=== PATIENT | female | born 1950 | race Caucasian/White ===

== ENCOUNTER → 2024-02-04 12:23 | Outpatient (CLI) | payer MEDICARE, OTHER, SELFPAY ==
--- NOTE | 2024-02-04 | DI.RAD.S_ITS ---
Bone Density Report Name: QIAN WEI Age: 73 Sex: Female Ethnicity: White Date of : 1950 Indication: postmenopausal; screening for osteoporosis; Referring Provider: KEE BUTLER Study: Bone densitometry was performed. Exam Date: February 04, 2024 Accession number: [id number] Bone Density: Region BMD T-score Z-score Classification Femoral Neck (Left) 0.773 -0.7 1.3 Normal Total Hip (Left) 0.944 0.0 1.7 Normal Femoral Neck (Right) 0.775 -0.7 1.3 Normal Total Hip (Right) 0.887 -0.4 1.3 Normal Total Hip Mean 0.916 -0.2 1.5 Normal Total Forearm (Left) 0.607 0.5 2.9 Normal 1/3 Forearm (Left) 0.682 -0.2 2.2 Normal UD Forearm (Left) 0.448 0.1 1.8 Normal World Health Organization criteria for BMD impression classify patients as: Normal (T-score at or above -1.0), Osteopenia (T-score between -1.0 and -2.5), or Osteoporosis (T-score at or below -2.5). Impression: The patient has normal bone mass. Discussion: BONE DENSITY IS ABOVE THE MINIMUM DESIRABLE LEVEL AT ALL SKELETAL SITES TESTED. This patient's bone mineral density is above the minimum desirable level (T-score -1.0 or better) at all sites measured. The patient should follow a healthful lifestyle (good nutrition with adequate calcium and vitamin D, and appropriate weight-bearing exercise). Follow-Up: Consider repeating this study in 5 years or sooner if there is some new clinical indication. Reported by: [facility] DOLLY MORA M.D. on 02/04/2024 1:14:00 PM.
--- NOTE | 2024-02-04 | DI.MG.S_ITS ---
BILATERAL DIGITAL SCREENING MAMMOGRAM 3D/2D WITH CAD: 02/04/2024 CLINICAL: Routine screening. Family history of breast cancer. Comparison is made to exams dated: 04/17/2021 mammogram, 05/06/2019 mammogram, 04/07/2018 mammogram, and 04/06/2019 mammogram - outside location. There are scattered areas of fibroglandular density in both breasts (category b / 25%-50% glandular tissue). Current study was also evaluated with a Computer Aided Detection (CAD) system. No significant masses, calcifications, or other findings are seen in either breast. There has been no significant interval change. IMPRESSION: NEGATIVE There is no mammographic evidence of malignancy. A 1 year screening mammogram is recommended. Based on the Tyrer Cuzick model (a risk assessment model) the patient's lifetime risk is 5.4% and her 10 year risk is 4.5%. According to the ACR, ACS, and NCCN guidelines, an annual breast MRI exam along with mammogram is recommended if the patient's lifetime risk is 20% or greater. This exam was interpreted at Station ID: [id number]. NOTE: For mammograms, a report in lay terms will be sent to the patient. Approximately 15% of breast malignancies will not be visualized mammographically. In the management of a palpable breast mass, a negative mammogram must not discourage biopsy of a clinically suspicious lesion. Electronically Signed By: Mary Lou Franks M.D., PH.D annamaria/ajay:02/04/2024 16:06:03 letter sent: Normal Exam ACR BI-RADS Category 1: Negative [id number]
== END ==
PROVIDERS: PCP Family Medicine; Referring Provider Family Medicine; Visit Provider Family Medicine
DX: Z80.3 Family history of malignant neoplasm of breast (principal); Z12.31 Encounter for screening mammogram for malignant neoplasm of breast; R92.323 Mammographic fibroglandular density, bilateral breasts; M85.89 Other specified disorders of bone density and structure, multiple sites
CPT/HCPCS: 77063; 77067; 77080; 77081

== ENCOUNTER → 2024-02-10 16:24 | Outpatient (CLI) | payer MEDICARE, OTHER, SELFPAY | PROVIDERS: PCP Family Medicine; Referring Provider Physician Assistant; Visit Provider Physician Assistant | DX: Z01.818 Encounter for other preprocedural examination (principal) | CPT/HCPCS: 93005 ==

== ENCOUNTER → 2024-10-28 18:40 | Outpatient (CLI) | payer MEDICARE, OTHER, SELFPAY ==
--- NOTE | 2024-10-28 | DI.MRI.S_ITS ---
PROCEDURE: MR CERVICAL SPINE WO CON INDICATIONS: previous c4-c6 fusion rt c7 t1 foraninotmy TECHNIQUE: Noncontrast sagittal T1 spin echo and T2 fast spin echo, sagittal STIR, foraminal oblique sagittal T2 fast spin echo, and axial gradient echo or T2 fast spin echo through the cervical spine. COMPARISON: None. FINDINGS: Image quality: Excellent. Alignment and Curvature: Remote ACDF at C4 through C6. Trace retrolisthesis of C6 on C7. Trace anterolisthesis of C5 on C6. Bone Marrow: Marrow demonstrates normal overall signal. Spinal Cord: There is focal signal abnormality in the cord seen at the level of C6 to the left of midline consistent with a focal area of myelomalacia. Reference T2 axial image 27 of series 3. No cerebellar tonsillar herniation. Paraspinous Soft Tissues: No paravertebral masses. Prevertebral soft tissues are normal in thickness. C2-C3: Disc bulge. No canal stenosis. Left facet hypertrophy. Moderate left foraminal narrowing with flattening deformity on the exiting left C3 nerve root. C3-C4: Chronic disc height loss. Posterior diffuse disc post osteophyte flattening the cord. Moderate to severe canal stenosis. AP diameter of the central canal is 7.8 mm. Reference axial T2 image 18 of series 3. Prominent bilateral uncovertebral joint hypertrophy. Facet hypertrophy. Severe bilateral foraminal narrowing with bilateral foraminal C4 nerve root impingement. C4-C5: Remote ACDF. No canal stenosis. Bilateral uncovertebral joint hypertrophy and facet hypertrophy. Moderate bilateral foraminal narrowing. C5-C6: Remote ACDF. Ventral cord flattening. Ycjk-zr-cltelmso canal stenosis. AP diameter of the central canal is 9.1 mm. Reference axial image 25 of series 3. Bilateral uncovertebral joint hypertrophy. Bilateral facet hypertrophy. Moderate to severe bilateral foraminal narrowing with a degree of bilateral foraminal C6 nerve root impingement. C6-C7: Severe chronic disc height loss. Diffuse posterior disc post osteophyte. Moderate to severe canal stenosis. AP diameter of the central canal is 7.8 mm. Reference axial image 29 of series 3. Bilateral uncovertebral joint hypertrophy. Moderate to severe bilateral foraminal narrowing with a degree of bilateral foraminal C7 nerve root impingement. C7-T1: Chronic disc height loss. Disc bulge. No central canal stenosis. Prominent right uncovertebral joint hypertrophy plus right facet hypertrophy. Despite previous surgery, there appears to be continued moderate to severe right foraminal narrowing and a degree of right foraminal C8 nerve root impingement. There is moderate left foraminal narrowing. IMPRESSION: 1. Diffuse cervical spondylitic change. 2. Remote ACDF at C4 through C6 and given history of right foraminotomy at C7-T1. 3. Canal stenosis is moderate to severe at C3-C4, [id number]-[id number] at C5-C6, and moderate to severe at C6-C7. 3. Multilevel foraminal narrowing as described above. Findings include severe bilateral foraminal narrowing at C3-C4, moderate to severe bilateral foraminal narrowing at C5-C6, moderate to severe bilateral foraminal narrowing at C6-C7, and moderate to severe right foraminal narrowing at C7-T1. Comment: CT of the cervical spine may be helpful to more clearly defined the surgery, and to confirm the degree of right foraminal narrowing at C7-T1. Dictated by: Adan Rm M.D. on 10/29/2024 at 11:52 Approved by: Adan Rm M.D. on 10/29/2024 at 12:03
== END ==
PROVIDERS: PCP Family Medicine; Referring Provider Family Medicine; Visit Provider Orthopaedic Surgery Orthopaedic Surgery of the Spine
DX: Z09 Encounter for follow-up examination after completed treatment for conditions other than malignant neoplasm; Z98.1 Arthrodesis status; M47.812 Spondylosis without myelopathy or radiculopathy, cervical region; M48.02 Spinal stenosis, cervical region
CPT/HCPCS: 72141

== ENCOUNTER 2025-01-19 15:15 | Outpatient (RCR) | payer MEDICARE, OTHER, SELFPAY ==
--- NOTE | 2025-01-07 09:45 | PT.OIE ---
Current Diagnoses Stress incontinence (female) (male) (01/07/25) Pelvic muscle wasting (01/07/25) Nocturia (01/07/25) Urgency of urination (01/07/25) Visit Care Team Role Provider Type Vero Landaverde MD Attending Provider Physician Family Provider Primary Care Provider Referring Provider Specialty: Family Practice Address: [address] [place] [address], [id number] Email: [email or web address] Physical Therapy Initial Evaluation PT-OP-A Visit Information Start: 01/06/25 12:04 Freq: Status: Active Protocol: Document 01/07/25 09:51 [facility] (Rec: 01/07/25 10:35 [facility] [id number]) Out-Patient Physical Therapy Visit Information Visit Information Visit Type Initial Evaluation Visit Start Time 09:50 Visit Stop Time 10:35 Visit Number 1 PT-OP-B Current Condition Start: 01/06/25 12:04 Freq: Status: Active Protocol: Document 01/07/25 09:45 [facility] (Rec: 01/07/25 10:35 [facility] [id number]) Current Condition History of Current Condition Current Complaints leaking with coughing and increased frequency of voiding History of Current Condition pt notes that her symptoms started a year ago and she saw Dr. Landaverde in July in 2023 and was referred to PT and given estrogen suppositories. she did start some kegels and she feels the estrodial she is using reguraly. She feels she is doing better. She feels only 1xm in the past three weeks has she noticed leakage. She takes miralax for bowel movements and has had to take this for years. She stops drinking liquids by 7 and goes to bed at 10. She sleeps until approx 6:30 Merline notes she feels very nervous about her bladder and feels she needs to be able to know where there is a bathroom She takes a bladder stimulant hydothoraclodizide 25 mg tablet for blood pressure and it is a bladder stimulant for years. So first thing in the am she has to go more frequently Prior Treatments and Tests she started taking estrodial vaginal estrogen suppositories She has a history of 2 c section delivies hysterectomy She had a lumbar fusion surgery March of 2023 and then cervical disc repair February 2024 PT-OP-C Subjective Start: 01/06/25 12:04 Freq: Status: Active Protocol: Document 01/07/25 09:45 [facility] (Rec: 01/12/25 11:26 [facility] [id number]) Patient Questionnaires Pelvic Pain and Urgency/Frequency Patient Symptom Scale Pelvic Pain Score 5 PT-OP-I Pelvic Floor Start: 01/06/25 12:04 Freq: Status: Active Protocol: Document 01/07/25 09:45 [facility] (Rec: 01/07/25 17:00 [facility] [id number]) Pelvic Floor Assessment Urine Pelvic Floor Surgery No Urinary Symptoms Urge Sensation Leakage Size Medium Leakage Cause Sneeze Other Leakage Causes urinary urgency and frequency of voiding feeling that she needs to know where the bathroom is, pt also notes she empties her bladder frequently before she experiences the need to go as well. Nocturia 2 Contraction Ability Voluntary Contraction Weak Voluntary Relaxation Weak Muscle Endurance (Seconds) 4 Comments Pelvic Floor Comments Merline presents with decreased pelvic floor endurance and decreased recruitment of the anterior pelvic floor with external pelvic floor assessment today PT-OP-Q Treatments Start: 01/06/25 12:04 Freq: Status: Active Protocol: Document 01/07/25 09:45 [facility] (Rec: 01/07/25 12:17 [facility] [id number]) Therapeutic Exercises Supine Exercises pelvic floor 5 sec hold with 10 sec relax Reps/Minutes 10 reps 2 times per day Self-Care/Home Management Treatment Education Patient Education Home Exercise Program Other Education pt was educated in urge deference technique and was given a bladder diary for home PT-OP-T Assessment and Plan Start: 01/06/25 12:04 Freq: Status: Active Protocol: Document 01/07/25 09:45 [facility] (Rec: 01/12/25 11:26 [facility] [id number]) Physical Therapy Assessment Rehab Potential Rehabilitation Potential Good Evaluation Complexity Number of Personal Factors/Comorbidities 3 or More Number of Body Systems Impaired 3 Clinical Presentation at Evaluation Stable Impairments Impairments Activity Tolerance,Soft Tissue Mobility,Strength Other Impairments urinary urgency and frequency Goals urinary stress incontinence Impairment Urinary stress incontinence symptoms with strong cough and or sneeze Short Term Goal (STG) Merline is educated on a pelvic floor strengthening program to improve support to the bladder STG Duration 4 weeks Retirement Goal (LTG) Merline reports a overall reduction of urinary stress incontinence symptoms LTG Duration 8 weeks Decreased pelvic floor strength and endurance Impairment Decreased strength and endurance urinary urgency and frequency Impairment urinary urgency and frequency with pt reporting voiding 10+ times per day and nocturia x 2 Short Term Goal (STG) Merline is educated on bladder irritants and instructed in use of the urge deference technique STG Duration 4 weeks Retirement Goal (LTG) Merline is able to extend her voids to a average of every 2 hours and nocturia is decreased to 1 time per night LTG Duration 8 weeks Assessment Summary Assessment Merline is a 74 year old female referred to PT with symptoms of urinary urgency and frequency as well as stress incontinence symptoms. Merline reports she was given a prescription for vaginal estrogen in July and she feels this has made a really big difference for her with her leakage. She is leaking with strong cough or sneeze and also describes urinary urgency and frequency. This limits travel and recreational activities as eMrline feels she always needs to know where the bathroom is. Merline was given a bladder diary today and was educated on the urge deference technique and bladder retraining. She presents with weakness in her pelvic floor and poor endurance to sustain a pelvic floor contraction. She was started on pelvic floor strengthening exercises with adductor assist. She tolerated these well and is a good candidate for PT. Physical Therapy Plan Frequency and Duration Frequency of Treatment 1x/Week Duration of treatment (weeks) 8 Plan of Care Start Date 01/07/25 Plan of Care End Date 03/04/25 Therapeutic Interventions Therapeutic Interventions Home Exercise Program, Neuromuscular Re-education, Patient/Caregiver Education, Self-Care/Home Management, Therapeutic Exercises Modalities Biofeedback Next Visit Focus/Plan Next Note Type Treatment Note Next Visit Plan review bladder diary and urge deference technique, pelvic floor strength and endurance training
--- NOTE | 2025-01-07 13:04 | PT.OPPN ---
Current Diagnoses Stress incontinence (female) (male) (01/07/25) Pelvic muscle wasting (01/07/25) Nocturia (01/07/25) Urgency of urination (01/07/25) Physical Therapy Progress Note PT-OP-A Visit Information Start: 01/06/25 12:04 Freq: Status: Active Protocol: Document 01/07/25 09:51 [facility] (Rec: 01/07/25 10:35 [facility] [id number]) Out-Patient Physical Therapy Visit Information Visit Information Visit Type Initial Evaluation Visit Start Time 09:50 Visit Stop Time 10:35 Visit Number 1 PT-OP-B Current Condition Start: 01/06/25 12:04 Freq: Status: Active Protocol: Document 01/07/25 09:45 [facility] (Rec: 01/07/25 10:35 [facility] [id number]) Current Condition History of Current Condition Current Complaints leaking with coughing and increased frequency of voiding History of Current Condition pt notes that her symptoms started a year ago and she saw Dr. Landaverde in July in 2023 and was referred to PT and given estrogen suppositories. she did start some kegels and she feels the estrodial she is using regularly. She feels she is doing better. She feels only 1xm in the past three weeks has she noticed leakage. She takes miralax for bowel movements and has had to take this for years. She stops drinking liquids by 7 and goes to bed at 10. She sleeps until approx 6:30 Merline notes she feels very nervous about her bladder and feels she needs to be able to know where there is a bathroom She takes a bladder stimulant hydrochlorothiazide 25 mg tablet for blood pressure and it is a bladder stimulant for years. So first thing in the am she has to go more frequently Prior Treatments and Tests she started taking estrodial vaginal estrogen suppositories She has a history of 2 c section deliveries hysterectomy She had a lumbar fusion surgery March of 2023 and then cervical disc repair February 2024 PT-OP-C Subjective Start: 01/06/25 12:04 Freq: Status: Active Protocol: Document 01/07/25 09:45 [facility] (Rec: 01/12/25 11:26 [facility] [id number]) Patient Questionnaires Pelvic Pain and Urgency/Frequency Patient Symptom Scale Pelvic Pain Score 5 PT-OP-I Pelvic Floor Start: 01/06/25 12:04 Freq: Status: Active Protocol: Document 01/07/25 09:45 [facility] (Rec: 01/07/25 17:00 [facility] [id number]) Pelvic Floor Assessment Urine Pelvic Floor Surgery No Urinary Symptoms Urge Sensation Leakage Size Medium Leakage Cause Sneeze Other Leakage Causes urinary urgency and frequency of voiding feeling that she needs to know where the bathroom is, pt also notes she empties her bladder frequently before she experiences the need to go as well. Nocturia 2 Contraction Ability Voluntary Contraction Weak Voluntary Relaxation Weak Muscle Endurance (Seconds) 4 Comments Pelvic Floor Comments Merline presents with decreased pelvic floor endurance and decreased recruitment of the anterior pelvic floor with external pelvic floor assessment today PT-OP-T Assessment and Plan Start: 01/06/25 12:04 Freq: Status: Active Protocol: Document 01/07/25 09:45 [facility] (Rec: 01/12/25 11:26 [facility] [id number]) Physical Therapy Assessment Rehab Potential Rehabilitation Potential Good Evaluation Complexity Number of Personal Factors/Comorbidities 3 or More Number of Body Systems Impaired 3 Clinical Presentation at Evaluation Stable Impairments Impairments Activity Tolerance,Soft Tissue Mobility,Strength Other Impairments urinary urgency and frequency Goals urinary stress incontinence Impairment Urinary stress incontinence symptoms with strong cough and or sneeze Short Term Goal (STG) Merline is educated on a pelvic floor strengthening program to improve support to the bladder STG Duration 4 weeks Shelter Goal (LTG) Merline reports a overall reduction of urinary stress incontinence symptoms LTG Duration 8 weeks Decreased pelvic floor strength and endurance Impairment Decreased strength and endurance urinary urgency and frequency Impairment urinary urgency and frequency with pt reporting voiding 10+ times per day and nocturia x 2 Short Term Goal (STG) Merline is educated on bladder irritants and instructed in use of the urge deference technique STG Duration 4 weeks Crane Follower Goal (LTG) Merline is able to extend her voids to a average of every 2 hours and nocturia is decreased to 1 time per night LTG Duration 8 weeks Assessment Summary Assessment Merline is a 74 year old female referred to PT with symptoms of urinary urgency and frequency as well as stress incontinence symptoms. Merline reports she was given a prescription for vaginal estrogen in July and she feels this has made a really big difference for her with her leakage. She is leaking with strong cough or sneeze and also describes urinary urgency and frequency. This limits travel and recreational activities as Merline feels she always needs to know where the bathroom is. Merline was given a bladder diary today and was educated on the urge deference technique and bladder retraining. She presents with weakness in her pelvic floor and poor endurance to sustain a pelvic floor contraction. She was started on pelvic floor strengthening exercises with adductor assist. She tolerated these well and is a good candidate for PT. Physical Therapy Plan Frequency and Duration Frequency of Treatment 1x/Week Duration of treatment (weeks) 8 Plan of Care Start Date 01/07/25 Plan of Care End Date 03/04/25 Therapeutic Interventions Therapeutic Interventions Home Exercise Program, Neuromuscular Re-education, Patient/Caregiver Education, Self-Care/Home Management, Therapeutic Exercises Modalities Biofeedback Next Visit Focus/Plan Next Note Type Treatment Note Next Visit Plan review bladder diary and urge deference technique, pelvic floor strength and endurance training
--- NOTE | 2025-01-19 16:22 | PT.OTN ---
Current Diagnoses Stress incontinence (female) (male) (01/19/25) Pelvic muscle wasting (01/19/25) Nocturia (01/19/25) Urgency of urination (01/19/25) Physical Therapy Treatment Note PT-OP-A Visit Information Start: 01/06/25 12:04 Freq: Status: Active Protocol: Document 01/19/25 15:26 [facility] (Rec: 01/19/25 16:22 [facility] [id number]) Out-Patient Physical Therapy Visit Information Visit Information Visit Type Treatment Note Visit Start Time 15:25 PT-OP-B Current Condition Start: 01/06/25 12:04 Freq: Status: Active Protocol: Document 01/07/25 09:45 [facility] (Rec: 01/07/25 10:35 [facility] [id number]) Current Condition History of Current Condition Current Complaints leaking with coughing and increased frequency of voiding History of Current Condition pt notes that her symptoms started a year ago and she saw Dr. Landaverde in July in 2023 and was referred to PT and given estrogen suppositories. she did start some kegels and she feels the estrodial she is using reguraly. She feels she is doing better. She feels only 1xm in the past three weeks has she noticed leakage. She takes miralax for bowel movements and has had to take this for years. She stops drinking liquids by 7 and goes to bed at 10. She sleeps until approx 6:30 Merline notes she feels very nervous about her bladder and feels she needs to be able to know where there is a bathroom She takes a bladder stimulant hydothoraclodizide 25 mg tablet for blood pressure and it is a bladder stimulant for years. So first thing in the am she has to go more frequently Prior Treatments and Tests she started taking estrodial vaginal estrogen suppositories She has a history of 2 c section delivies hysterectomy She had a lumbar fusion surgery March of 2023 and then cervical disc repair February 2024 PT-OP-C Subjective Start: 01/06/25 12:04 Freq: Status: Active Protocol: Document 01/19/25 15:26 [facility] (Rec: 01/19/25 16:22 [facility] [id number]) OP-PT Subjective Patient Comments Patient Comments pt notes she learned alot with the bladder diary last week. She learned the more liquid she takes in she goes reguraly , she felt she was dehydrated. She is drinking approx 8 cups of liquid per day including her coffee and sparkling water. She has cut back on that She is able to hold x 10 seconds with pelvic floor exercises She had no leakage at all this past week. PT-OP-I Pelvic Floor Start: 01/06/25 12:04 Freq: Status: Active Protocol: Document 01/07/25 09:45 [facility] (Rec: 01/07/25 17:00 [facility] [id number]) Pelvic Floor Assessment Urine Pelvic Floor Surgery No Urinary Symptoms Urge Sensation Leakage Size Medium Leakage Cause Sneeze Other Leakage Causes urinary urgency and frequency of voiding feeling that she needs to know where the bathroom is, pt also notes she empties her bladder frequently before she experiences the need to go as well. Nocturia 2 Contraction Ability Voluntary Contraction Weak Voluntary Relaxation Weak Muscle Endurance (Seconds) 4 Comments Pelvic Floor Comments Merline presents with decreased pelvic floor endurance and decreased recruitment of the anterior pelvic floor with external pelvic floor assessment today PT-OP-Q Treatments Start: 01/06/25 12:04 Freq: Status: Active Protocol: Document 01/19/25 15:26 [facility] (Rec: 01/19/25 16:22 [facility] [id number]) Therapeutic Exercises Supine Exercises supine marches Supine Exercise Name worked on level 1 and level 2 lower abdominal progression Reps/Minutes x 10 each pelvic floor 5 sec hold with 10 sec relax Reps/Minutes 10 sec hold x 10 reps Comments 2 times per day Other Exercises cat cow Other Exercise Name inhale relax and exhale contract Self-Care/Home Management Treatment Education Patient Education Home Exercise Program Other Education review of bladder irritants, bladder diary, urge deference technique and pelvic floor endurnace contractions. Pt's HEP was progressed and she was given handouts PT-OP-T Assessment and Plan Start: 01/06/25 12:04 Freq: Status: Active Protocol: Document 01/19/25 15:26 [facility] (Rec: 01/19/25 16:22 [facility] [id number]) Physical Therapy Assessment Goals urinary stress incontinence Impairment Urinary stress incontinence symptoms with strong cough and or sneeze Short Term Goal (STG) Merline is educated on a pelvic floor strengthening program to improve support to the bladder STG Duration 4 weeks [employer] Manager Goal (LTG) Merline reports a overall reduction of urinary stress incontinence symptoms LTG Duration 8 weeks Decreased pelvic floor strength and endurance Impairment Decreased strength and endurance urinary urgency and frequency Impairment urinary urgency and frequency with pt reporting voiding 10+ times per day and nocturia x 2 Short Term Goal (STG) Merline is educated on bladder irritants and instructed in use of the urge deference technique STG Duration 4 weeks [employer] Manager Goal (LTG) Merline is able to extend her voids to a average of every 2 hours and nocturia is decreased to 1 time per night Merline is able to go every 2 hours now and is waking 1 time to go. LTG Duration 8 weeks Assessment Summary Assessment Merline reports she is doing much better overall, she is up to 10 second holds now and feels the urge deference technique is working for her. We added in pelvic floor with core work today and Merline did really well with this. She would like to work on her own for this month and then do another recheck if needed. Physical Therapy Plan Frequency and Duration Frequency of Treatment 1x/Week Duration of treatment (weeks) 8 Plan of Care Start Date 01/07/25 Plan of Care End Date 03/04/25 Therapeutic Interventions Therapeutic Interventions Home Exercise Program, Neuromuscular Re-education, Patient/Caregiver Education, Self-Care/Home Management, Therapeutic Exercises Modalities Biofeedback Next Visit Focus/Plan Next Note Type Treatment Note Next Visit Plan continue to progress pelvic floor strength and endurance training.
--- NOTE | 2025-02-17 08:10 | PT.OPDS ---
Current Diagnoses Stress incontinence (female) (male) (01/19/25) Pelvic muscle wasting (01/19/25) Nocturia (01/19/25) Urgency of urination (01/19/25) Visit Care Team Role Provider Type Vero Landaverde MD Attending Provider Physician Family Provider Primary Care Provider Referring Provider Specialty: Family Practice Address: [address] [place] [address], [id number] Email: [email or web address] Visit Number Visit Number 2 Discharge Summary PT-OP-B Current Condition Start: 01/06/25 12:04 Freq: Status: Active Protocol: Document 01/07/25 09:45 [facility] (Rec: 01/07/25 10:35 [facility] [id number]) Current Condition History of Current Condition Current Complaints leaking with coughing and increased frequency of voiding History of Current Condition pt notes that her symptoms started a year ago and she saw Dr. Landaverde in July in 2023 and was referred to PT and given estrogen suppositories. she did start some kegels and she feels the estrodial she is using reguraly. She feels she is doing better. She feels only 1xm in the past three weeks has she noticed leakage. She takes miralax for bowel movements and has had to take this for years. She stops drinking liquids by 7 and goes to bed at 10. She sleeps until approx 6:30 Merline notes she feels very nervous about her bladder and feels she needs to be able to know where there is a bathroom She takes a bladder stimulant hydothoraclodizide 25 mg tablet for blood pressure and it is a bladder stimulant for years. So first thing in the am she has to go more frequently Prior Treatments and Tests she started taking estrodial vaginal estrogen suppositories She has a history of 2 c section delivies hysterectomy She had a lumbar fusion surgery March of 2023 and then cervical disc repair February 2024 PT-OP-C Subjective Start: 01/06/25 12:04 Freq: Status: Active Protocol: Document 01/19/25 15:26 [facility] (Rec: 01/19/25 16:22 [facility] [id number]) OP-PT Subjective Patient Comments Patient Comments pt notes she learned alot with the bladder diary last week. She learned the more liquid she takes in she goes reguraly , she felt she was dehydrated. She is drinking approx 8 cups of liquid per day including her coffee and sparkling water. She has cut back on that She is able to hold x 10 seconds with pelvic floor exercises She had no leakage at all this past week. PT-OP-I Pelvic Floor Start: 01/06/25 12:04 Freq: Status: Active Protocol: Document 01/07/25 09:45 [facility] (Rec: 01/07/25 17:00 [facility] [id number]) Pelvic Floor Assessment Urine Pelvic Floor Surgery No Urinary Symptoms Urge Sensation Leakage Size Medium Leakage Cause Sneeze Other Leakage Causes urinary urgency and frequency of voiding feeling that she needs to know where the bathroom is, pt also notes she empties her bladder frequently before she experiences the need to go as well. Nocturia 2 Contraction Ability Voluntary Contraction Weak Voluntary Relaxation Weak Muscle Endurance (Seconds) 4 Comments Pelvic Floor Comments Merline presents with decreased pelvic floor endurance and decreased recruitment of the anterior pelvic floor with external pelvic floor assessment today PT-OP-T Assessment and Plan Start: 01/06/25 12:04 Freq: Status: Active Protocol: Document 02/17/25 08:07 [facility] (Rec: 02/17/25 08:09 [facility] [id number]) Physical Therapy Assessment Goals urinary stress incontinence Impairment Urinary stress incontinence symptoms with strong cough and or sneeze Short Term Goal (STG) Merline is educated on a pelvic floor strengthening program to improve support to the bladder GOAL MET STG Duration 4 weeks Chief [employer] Officer Goal (LTG) Merline reports a overall reduction of urinary stress incontinence symptoms GOAL MET LTG Duration 8 weeks Decreased pelvic floor strength and endurance Impairment Decreased strength and endurance Residential Goal (LTG) Merline presents with improved strength and endurance of the pelvic floor GOAL MET urinary urgency and frequency Impairment urinary urgency and frequency with pt reporting voiding 10+ times per day and nocturia x 2 Short Term Goal (STG) Merline is educated on bladder irritants and instructed in use of the urge deference technique GOAL MET STG Duration 4 weeks Chief Credit Officer Goal (LTG) Merline is able to extend her voids to a average of every 2 hours and nocturia is decreased to 1 time per night Merline is able to go every 2 hours now and is waking 1 time to go. LTG Duration 8 weeks Assessment Summary Assessment Merline reports she is doing much better overall, her endurance for pelvic floor contractions has improved and she feels the urge deference technique is working well for her. She has decreased her intake of bladder irritants. She has cx her remaining visit as she feels ready to DC PT. She will be DC at this time Physical Therapy Plan Discharge Physical Therapy Discharge Reasons Patient Request
== END 2025-02-17 12:36 | disposition home or self-care (01) ==
LOC: PHYS 15:15
PROVIDERS: Family Provider Family Medicine; PCP Family Medicine; Referring Provider Family Medicine; Visit Provider Family Medicine
DX: N39.3 Stress incontinence (female) (male) (principal); R39.15 Urgency of urination; N81.84 Pelvic muscle wasting; R35.1 Nocturia
CPT/HCPCS: 97110; 97162; 97535

== ENCOUNTER → 2025-08-12 14:01 | Outpatient (CLI) | payer MEDICARE, OTHER, SELFPAY ==
--- NOTE | 2025-08-12 14:02 | DI.MG.S_ITS ---
MM screening mammo BI: 08/12/2025. BI-RADS: 1 CLINICAL: 75-year old female for bilateral screening mammogram. Tyrer-Cuzick lifetime risk of 2.1%. No personal or first-degree family history of breast cancer. Current reported family history of breast cancer: paternal aunt. PRIOR EXAMS 02/04/2024. MAMMOGRAPHY TECHNIQUE: 2D and 3D (tomosynthesis) digital mammographic views obtained, with additional images as needed for full coverage. Current study was also evaluated with a Computer Aided Detection (CAD) system. DENSITY B. There are scattered areas of fibroglandular density. MAMMOGRAPHY FINDINGS Bilateral: No suspicious mass, asymmetry, microcalcification, or other abnormality seen. IMPRESSION: * No evidence of malignancy. RECOMMENDATIONS Bilateral * Annual screening mammography. OVERALL ASSESSMENT CATEGORY BI-RADS-1: Negative. [employer] recommends annual screening mammography beginning at age 40 for women with average risk of breast cancer. ELECTRONICALLY SIGNED: Mary Lou Franks M.D. on 08/14/2025 at 03:24:54 PM PT Interpreting Station ID: [id number]
== END ==
PROVIDERS: Family Provider Family Medicine; PCP Family Medicine; Referring Provider Family Medicine; Visit Provider Family Medicine
DX: Z12.31 Encounter for screening mammogram for malignant neoplasm of breast (principal); Z80.3 Family history of malignant neoplasm of breast
CPT/HCPCS: 77063; 77067